=== PATIENT | male | born 1985 | race Caucasian/White ===

== ENCOUNTER 2016-10-21 19:17 | Emergency (ER) | payer SELFPAY ==
[2016-10-21 19:24] VITALS: RESP 16
[2016-10-21] MEDS ORDERED: LORAZEPAM 1 MG PREPACK#4 BTL TAKEHOME ONE (19:45)
[2016-10-21] MEDS ORDERED: LORazepam 1 MG TAB PO ONE (19:46)
[2016-10-21] MEDS ORDERED: ONDANSETRON 4MG PREPACK#2 BTL TAKEHOME ONE (19:46)
[2016-10-21] MEDS ORDERED: ONDANSETRON DISINTEGRATING 4 MG TAB PO ONE (19:46)
--- NOTE | 2016-10-21 19:51 | EDPHY ---
H & P Time Seen by Provider: 10/21/16 19:39 HPI/ROS: CHIEF COMPLAINT: Need a refill of Suboxone HISTORY OF PRESENT ILLNESS: This is a 31-year-old female who has a history of opiate addiction secondary to chronic back issues as well as opiates prescribed for toothache. Patient has been on Suboxone for several years. He recently moved to the [facility] after losing his insurance in [place]. He has been weaning himself off the Suboxone and took his last dose this morning. Patient reports over the last 2 days he has had nausea, anxiety, piloerection, and insomnia. Patient adamantly denies use of alcohol, smoking, other illicit drugs. He does smoke marijuana. No fevers or chills, no chest pain or shortness of breath, no vomiting or diarrhea, no urinary complaints or headache. REVIEW OF SYSTEMS: Aside from elements discussed in the HPI, a comprehensive 10-point review of systems was reviewed and is negative. PAST MEDICAL HISTORY: Prescription opiate addiction. SOCIAL HISTORY: Recently moved here from [place]. VITAL SIGNS Reviewed by me. GENERAL: Well-developed, well-nourished, no respiratory distress. Looks comfortable. HEENT: Atraumatic. Eyes: No icterus, no injection. Mouth: Slightly dry mucous membranes. No erythema or lesions. Neck: supple with no adenopathy. LUNGS: Clear to auscultation bilaterally, no wheezes, rhonchi or rales. CARDIAC: Regular rate and rhythm, no rubs, murmurs or gallops. ABDOMEN: Soft, nontender, nondistended, bowel sounds normal. BACK: No CVA tenderness. EXTREMITIES: No trauma. No edema. Range of motion is normal throughout. NEURO: Alert and oriented, grossly nonfocal. SKIN: Warm and dry, no rash. No visible piloerection. PSYCHIATRIC: Normal mentation, no agitation. Constitutional: Initial Vital Signs Temperature (C) 37.3 C 10/21/16 19:21 Heart Rate 94 10/21/16 19:21 Respiratory Rate 16 10/21/16 19:21 Blood Pressure 141/86 H 10/21/16 19:21 O2 Sat (%) 98 10/21/16 19:21 O2 Delivery Mode Room Air Allergies/Adverse Reactions: No Known Allergies Allergy (Unverified 10/21/16 19:24) Home Medications: Medication Instructions Recorded Suboxone 8 mg-2 mg SL Film 10/21/16 clonIDINE [Catapres-Tts] 0.1 mg TD DAILY #3 patch 10/21/16 Medical Decision Making ED Course/Re-evaluation: Discussed with patient the fact that Suboxone cannot be prescribed from the emergency department. He understands he needs to find a Suboxone provider. Will treat symptomatically for opiate withdrawal. Patient received Zofran in the emergency department as well as clonidine 0.1 mg. He was given a prepack of for Ativan tablets to use as needed for sleep and a prepack of 2 Zofran tablets as well. Patient was given referral to Suboxone providers in the [facility]. Differential Diagnosis: Differential diagnoses for the patient's symptom complex was considered including but not limited to opiate withdrawal, Suboxone withdrawal, drug- seeking behavior, medication refill, opiate dependency. - Data Points Medications Given: Discontinued Medications Clonidine (Catapres-Tts) 0.1 mg TD EDNOW ONE Stop: 10/21/16 19:46 Last Admin: 10/21/16 20:22 Dose: Not Given Clonidine (Catapres) 0.1 mg PO EDNOW ONE Stop: 10/21/16 20:20 Last Admin: 10/21/16 20:24 Dose: 0.1 mg Lorazepam (Ativan) 1 mg PO EDNOW ONE Stop: 10/21/16 19:47 Last Admin: 10/21/16 20:07 Dose: Not Given Lorazepam (Ativan 1 Mg Prepack#4) 1 btl TAKEHOME EDNOW ONE Stop: 10/21/16 19:46 Last Admin: 10/21/16 20:08 Dose: 1 btl Ondansetron HCl (Zofran Odt) 4 mg PO EDNOW ONE Stop: 10/21/16 19:47 Last Admin: 10/21/16 20:08 Dose: 4 mg Ondansetron HCl (Zofran Odt 4 Mg Prepack#2) 1 btl TAKEHOME EDNOW ONE Stop: 10/21/16 19:47 Last Admin: 10/21/16 20:07 Dose: 1 btl Departure - Departure Disposition: Home, Routine, Self-Care Clinical Impression: Suboxone withdrawal, Nausea Insomnia Qualifiers: Insomnia type: unspecified Qualified Code(s): G47.00 - Insomnia, unspecified Condition: Good Instructions: Buprenorphine/Naloxone (Into the mouth), Opioid Withdrawal (ED) Additional Instructions: For ongoing nausea, please take Zofran as directed. For insomnia I recommend Benadryl. You may also take Ativan which will control your anxiety as well. Please follow up with a Suboxone provider in the [facility]. [place]-- these programs should work with medicaid or self pay patients [facility] [address] [place] [address] [email or web address] ?? they told us they do not do suboxone only methadone Dr. Shay Cab[facility] [address] [place] [address] [email or web address] Unclear what type of insurance may be needed. [facility] [address] [place] [address] [email or web address] [address] Farhad Eddy [address] [facility] [address] [place] [address] Dr. Vandana Collado [place] [address] [place] [address] [address]. Oscar Lewis [address] [place] [address] [address] [place] [address] [address]. Paulino Saleh [address] [facility] [address] [place] [address] [address] Julius May [address] [facility] [address] [place] [address] [address] Ivis Santana [address] [place] [address] [address] Shagufta Raymundo [address] [facility] [address] [place] [address] Dr. Vanda Duran [address] [place] [address] [address] [place] [address] Dr. Jessee Adam [address] [facility] [address] [place] [address] Referrals: NONE *PRIMARY CARE P,. [Primary Care Provider] - As per Instructions Prescriptions: clonIDINE [Catapres-Tts] 0.1 mg TD DAILY #3 patch
[2016-10-21 19:59] VITALS: BP 142/88; PULSE 84; TEMP 98.2; O2SAT 95
== END 2016-10-21 20:25 | disposition home or self-care (01) ==
LOC: CED 19:17
DX: R11.0 Nausea (principal); G47.00 Insomnia, unspecified; F11.23 Opioid dependence with withdrawal